=== PATIENT | male | born 1960 | race Caucasian/White ===

== ENCOUNTER 2019-10-31 02:30 | Emergency (ER) | payer OTHER ==
[~2019-10-31] VITALS: Ht 177.8 cm; Wt 113.6 kg
[2019-10-31] MEDS ORDERED: FLUVASTATIN ER80 MG PO (03:05)
[2019-10-31] MEDS ORDERED: MEXILETINE HCL200 M1 PO (03:05)
[2019-10-31] MEDS ORDERED: METOPROLOL SUCC25 M1 PO (03:06)
[2019-10-31] MEDS ORDERED: ZESTRIL2.5 M1 PO (03:06)
[2019-10-31] MEDS ORDERED: METFORMIN HCL500 M2 PO (03:06)
[2019-10-31] MEDS ORDERED: BENZONATATE200 MG PO (03:06)
[2019-10-31] MEDS ORDERED: OMEPRAZOLE40 MG PO (03:07)
[2019-10-31] MEDS ORDERED: NITROGLYCERIN0.4 M1 SL (03:07)
[2019-10-31] MEDS ORDERED: CLOPIDOGREL PO (03:08)
[2019-10-31] MEDS ORDERED: ASPIRIN ADULT L81 M3 PO (03:08)
[2019-10-31 03:30] LABS: BASO # 0.1 (0.02-0.10); EOS # 0.1 (0.04-0.40); EOS % 0.6 % (0.0-4.0); HEMATOCRIT 43.7 % (42.0-52.0); HEMOGLOBIN 13.6 g/dL (13.5-18.0); LYMPH# 1.7 (1.50-4.00); MEAN CELL VOLUME 90 fl (78-100); MEAN CORPUSCULAR HEMOGLOBIN 28 pg (27-31); MEAN CORPUSCULAR HGB CONC 31 g/dL (33-37); MONO # 0.7 (0.20-0.80); PLATELET COUNT 480 K/mm3 (130-400); RED BLOOD COUNT 4.85 M/mm3 (4.20-5.60); RED CELL DISTRIBUTION WIDTH 14.4 % (11.5-14.5); WHITE BLOOD COUNT 12.4 K/mm3 (4.8-10.8)
[2019-10-31 03:39] LABS: NEU # 9.8 (1.40-6.50)
[2019-10-31 03:41] LABS: ALBUMIN 3.7 g/dL (3.4-4.8); POTASSIUM 4.3 mmol/L (3.5-5.1); SODIUM 140 mmol/L (136-145)
[2019-10-31 03:44] LABS: GLUCOSE 166 mg/dL (75-110); TOTAL PROTEIN 7.7 g/dL (6.2-8.1)
[2019-10-31 03:45] LABS: CARBON DIOXIDE 24 mmol/L (23-31); TOTAL BILIRUBIN 0.4 mg/dL (0.2-1.2)
[2019-10-31 03:49] LABS: ALCOHOL IN-HOUSE < 10 mg/dL (<10); AST-SGOT 32 U/L (5-34)
[2019-10-31 03:50] LABS: ALT/SGPT 37 U/L (0-55)
[2019-10-31 03:51] LABS: LIPASE 106 U/L (8-78)
[2019-10-31] MEDS ORDERED: PACERONE400 MG PO (04:05)
[2019-10-31] MEDS ORDERED: LIPITOR 40MG TA40 MG PO (04:05)
[2019-10-31] MEDS ORDERED: EPLERENONE25 MG PO (04:06)
[2019-10-31] MEDS ORDERED: BREO ELLIPTA1 POW IH (04:07)
[2019-10-31] MEDS ORDERED: LORAZEPAM1 M1 PO ×2 (04:08)
[2019-10-31] MEDS ORDERED: PROPRANOLOL HCL20 M2 PO (04:09)
[2019-10-31] MEDS ORDERED: ZOLOFT 100MG100 MG PO (04:10)
[2019-10-31] MEDS ORDERED: TORSEMIDE20 M1 PO (04:11)
[2019-10-31 09:06] VITALS: BP 117/67
== END 2019-10-31 09:08 | disposition short-term general hospital (02) ==
LOC: ED 02:30
PROVIDERS: Family Medicine
DX: R11.10 Vomiting, unspecified (principal); R10.9 Unspecified abdominal pain; E10.9 Type 1 diabetes mellitus without complications; I25.2 Old myocardial infarction; I10 Essential (primary) hypertension; E78.5 Hyperlipidemia, unspecified; K21.9 Gastro-esophageal reflux disease without esophagitis; Z95.5 Presence of coronary angioplasty implant and graft; Z95.810 Presence of automatic (implantable) cardiac defibrillator; Z79.02 Long term (current) use of antithrombotics/antiplatelets; Z79.82 Long term (current) use of aspirin; Z79.51 Long term (current) use of inhaled steroids
CPT/HCPCS: J1200; J2543; J2765; J3010; J7030; Q9967